=== PATIENT | female | born 1965 ===

== ENCOUNTER 2018-07-20 14:32 | Outpatient (CLI) | payer OTHER | END 2018-07-20 15:55 | disposition home or self-care (01) | LOC: LAB 14:32 | DX: J11.1 Influenza due to unidentified influenza virus with other respiratory manifestations (principal) ==

== ENCOUNTER 2019-11-04 10:00 | Outpatient (CLI) | payer OTHER | END 2019-11-04 15:00 | disposition home or self-care (01) | LOC: PPH VACUNA 10:00 | DX: Z23 Encounter for immunization (principal) ==

== ENCOUNTER 2020-09-12 17:00 | Outpatient (CLI) | payer OTHER | END 2020-09-12 17:09 | disposition home or self-care (01) | LOC: LAB 17:00 | PROVIDERS: ATTEND Anesthesiology Pain Medicine | DX: N39.0 Urinary tract infection, site not specified (principal) ==

== ENCOUNTER → 2020-09-13 | Outpatient (CLI) | payer OTHER | END | disposition home or self-care (01) | LOC: LAB 10:01 | PROVIDERS: ATTEND Emergency Medicine Pediatric Emergency Medicine | DX: Z03.818 Encounter for observation for suspected exposure to other biological agents ruled out (principal) ==

== ENCOUNTER 2020-10-12 16:20 | Outpatient (CLI) | payer OTHER | END 2020-10-12 16:23 | disposition home or self-care (01) | LOC: LAB 16:20 | PROVIDERS: ATTEND Anesthesiology | DX: Z11.59 Encounter for screening for other viral diseases (principal); Z20.828 Contact with and (suspected) exposure to other viral communicable diseases ==

== ENCOUNTER → 2020-11-08 11:08 | Outpatient (CLI) | payer OTHER | END | disposition home or self-care (01) | LOC: LAB 11:08 | PROVIDERS: ATTEND Anesthesiology | DX: N39.0 Urinary tract infection, site not specified (principal); E03.8 Other specified hypothyroidism; R07.89 Other chest pain; E13.69 Other specified diabetes mellitus with other specified complication ==

== ENCOUNTER 2020-11-14 08:00 | Outpatient (CLI) | payer OTHER | END 2020-11-14 08:30 | disposition home or self-care (01) | LOC: PPH VACUNA 08:00 | PROVIDERS: ATTEND Emergency Medicine Pediatric Emergency Medicine | DX: Z23 Encounter for immunization (principal) ==

== ENCOUNTER 2020-11-21 10:00 | Outpatient (CLI) | payer OTHER | END 2020-11-21 10:01 | disposition home or self-care (01) | LOC: NUCLEAR 10:00 | PROVIDERS: ATTEND Internal Medicine | DX: I20.9 Angina pectoris, unspecified (principal) ==

== ENCOUNTER 2020-12-04 08:28 | Outpatient (CLI) | payer OTHER | END 2020-12-04 08:35 | disposition home or self-care (01) | LOC: NUCLEAR 08:28 | PROVIDERS: ATTEND Internal Medicine | DX: I20.9 Angina pectoris, unspecified (principal) | CPT/HCPCS: 78452; 93017; A9500 ==

== ENCOUNTER 2021-05-03 15:45 | Outpatient (CLI) | payer OTHER | END 2021-05-03 15:55 | disposition home or self-care (01) | LOC: LAB 15:45 | DX: A64 Unspecified sexually transmitted disease (principal) ==

== ENCOUNTER 2021-05-29 08:00 | Outpatient (CLI) | payer OTHER | END 2021-05-29 08:30 | disposition home or self-care (01) | LOC: PPH VACUNA 08:00 | PROVIDERS: ATTEND Emergency Medicine Pediatric Emergency Medicine | DX: Z23 Encounter for immunization (principal) ==

== ENCOUNTER 2021-09-20 11:40 | Outpatient (CLI) | payer OTHER | END 2021-09-20 11:46 | disposition home or self-care (01) | LOC: MAMO-SONO 11:40 | PROVIDERS: ATTEND Anesthesiology | DX: Z12.31 Encounter for screening mammogram for malignant neoplasm of breast (principal); N60.11 Diffuse cystic mastopathy of right breast ==

== ENCOUNTER 2021-11-22 15:03 | Outpatient (CLI) | payer OTHER | END 2021-11-22 15:04 | disposition home or self-care (01) | LOC: PPH VACUNA 15:03 | PROVIDERS: ATTEND Emergency Medicine Pediatric Emergency Medicine | DX: Z23 Encounter for immunization (principal) ==

== ENCOUNTER 2021-12-31 14:29 | Outpatient (CLI) | payer OTHER | END 2021-12-31 14:39 | disposition home or self-care (01) | LOC: PPH VACUNA 14:29 | PROVIDERS: ATTEND Emergency Medicine Pediatric Emergency Medicine | DX: Z23 Encounter for immunization (principal) ==

== ENCOUNTER 2022-06-25 15:56 | Outpatient (CLI) | payer OTHER | END 2022-06-25 16:06 | disposition home or self-care (01) | LOC: LAB 15:56 | PROVIDERS: ATTEND Anesthesiology Pain Medicine | DX: J06.9 Acute upper respiratory infection, unspecified (principal); J11.1 Influenza due to unidentified influenza virus with other respiratory manifestations; Z11.59 Encounter for screening for other viral diseases ==

== ENCOUNTER 2022-11-07 08:00 | Outpatient (CLI) | payer OTHER | END 2022-11-07 08:10 | disposition home or self-care (01) | LOC: PPH VACUNA 08:00 | PROVIDERS: ATTEND Emergency Medicine Pediatric Emergency Medicine | DX: Z23 Encounter for immunization (principal) | CPT/HCPCS: 90686; G0008 ==